=== PATIENT | male | born 1960 | race Caucasian/White ===

== ENCOUNTER → 2020-04-21 | Outpatient (CLI) | payer BC | LOC: HYPER 11:13 | PROVIDERS: ATTEND Specialist | DX: S61.412A Laceration without foreign body of left hand, initial encounter (principal); S60.512A Abrasion of left hand, initial encounter; C71.1 Malignant neoplasm of frontal lobe; C71.9 Malignant neoplasm of brain, unspecified; D69.6 Thrombocytopenia, unspecified; E78.00 Pure hypercholesterolemia, unspecified; K21.9 Gastro-esophageal reflux disease without esophagitis; Z87.891 Personal history of nicotine dependence; Z92.21 Personal history of antineoplastic chemotherapy; X58.XXXA Exposure to other specified factors, initial encounter; Y93.89 Activity, other specified; Y92.89 Other specified places as the place of occurrence of the external cause; Y99.8 Other external cause status ==

== ENCOUNTER → 2020-04-28 | Outpatient (CLI) | payer BC | LOC: HYPER 09:55 | PROVIDERS: ATTEND Specialist | DX: S61.412D Laceration without foreign body of left hand, subsequent encounter (principal); S60.512D Abrasion of left hand, subsequent encounter; C71.1 Malignant neoplasm of frontal lobe; C71.9 Malignant neoplasm of brain, unspecified; D69.6 Thrombocytopenia, unspecified; E78.00 Pure hypercholesterolemia, unspecified; K21.9 Gastro-esophageal reflux disease without esophagitis; Z92.21 Personal history of antineoplastic chemotherapy; Z87.891 Personal history of nicotine dependence; X58.XXXD Exposure to other specified factors, subsequent encounter ==

== ENCOUNTER → 2020-05-06 | Outpatient (CLI) | payer BC | LOC: HYPER 08:08 | PROVIDERS: ATTEND Emergency Medicine | DX: S61.412D Laceration without foreign body of left hand, subsequent encounter (principal); S60.512D Abrasion of left hand, subsequent encounter; C71.1 Malignant neoplasm of frontal lobe; C71.9 Malignant neoplasm of brain, unspecified; D69.6 Thrombocytopenia, unspecified; E78.00 Pure hypercholesterolemia, unspecified; K21.9 Gastro-esophageal reflux disease without esophagitis; Z92.21 Personal history of antineoplastic chemotherapy; Z87.891 Personal history of nicotine dependence ==